=== PATIENT | female | born 2000 | race African-American/Black ===

== ENCOUNTER 2024-09-05 01:14 | Emergency (ER) | payer SELFPAY ==
[2024-09-05 01:21] VITALS: BP 127/73; PULSE 80; RESP 15; TEMP 36.9; O2SAT 100
[2024-09-05 02:07] LABS: Strep Group A RT-PCR NOT DETECTED (Negative)
[2024-09-05 02:18] LABS: Influenza A QL RT-PCR Positive (Negative); Influenza B QL RT-PCR Negative (Negative); RSV RNA, RT-PCR Negative (Negative); SARS-CoV-2 RNA PCR Negative (Negative)
--- NOTE | 2024-09-05 02:26 | ED.URI ---
HPI - URI/Sore Throat General Chief Complaint: Upper Respiratory Infection Stated Complaint: migraines, chills, weakness, flu like symptoms Time Seen by Provider: 09/05/24 02:20 Source: patient Mode of arrival: ambulatory Limitations: no limitations History of Present Illness HPI Narrative: This is a 24-year-old female that presents to the emergency department for cold symptoms. Ongoing over the last 5 days. Reports fevers, myalgias, headache, sore throat, congestion. She has been taking Theraflu and Mucinex. Related Data Allergies Allergy/AdvReac Type Severity Reaction Status Date / Time No Known Allergies Allergy Verified 09/05/24 01:16 Review of Systems Review of Systems: CONSTITUTIONAL: Reports fever ENT: Reports rhinorrhea, congestion, sore throat RESPIRATORY: Reports cough and dyspnea. NEUROLOGIC: Reports headache All systems reviewed & are unremarkable except as noted in HPI and below PMFSH Past Medical History Medical History (Updated 09/05/24 @ 02:31 by Tiffanie Paz PA-C) No active medical problems Exam Narrative: GENERAL: Well-appearing, well-nourished, and in no acute distress. HEAD: Normocephalic, atraumatic. EYES: PERRLA and EOMI. ENT: Nares clear, no rhinorrhea or epistaxis. Mucous membranes moist. Oropharynx without tonsillar hypertrophy exudate or other lesions. Bilateral TMs pearly gómez non-bulging NECK: Supple. No adenopathy or masses. CHEST: Clear to auscultation. No respiratory distress. No wheezes rales or rhonchi HEART: Regular rate and rhythm. No murmur heard. Normal peripheral pulses. ABDOMEN: Soft, nontender, nondistended, normal active bowel sounds. EXTREMITIES: Normal range of motion. No edema. Strength equal in bilateral upper lower extremities (5/5) SKIN: Warm, dry, no rash. NEURO: No focal deficits. Alert and oriented x3. Cranial nerves 2-12 grossly intact PSYCH: Normal mood and affect Course Course Emergency Course: patient updated on her workup and agrees with plan of care Vital Signs Vital signs: Vital Signs Temperature 98.5 F 09/05/24 01:21 Pulse Rate 80 09/05/24 01:21 Respiratory Rate 15 09/05/24 01:21 Blood Pressure 127/73 09/05/24 01:21 Pulse Oximetry 100 09/05/24 01:21 Temperature 98.5 F 09/05/24 01:21 Pulse Rate 80 09/05/24 01:21 Respiratory Rate 15 09/05/24 01:21 Blood Pressure 127/73 09/05/24 01:21 Pulse Oximetry 100 09/05/24 01:21 MDM - URI/Sore Throat MDM Narrative Medical decision making narrative: Patient presents to the emergency department for cold symptoms. She is afebrile and nontoxic appearing. Oxygen saturation is 100% on room air. Lungs are clear on exam. Patient is influenza A positive. Instructed on further symptomatic care of viral infection. She is to follow up with primary provider. She was given warnings to return to the ER Differential Diagnosis Differential diagnosis: Likely upper respiratory infection, sinusitis, viral infection, bronchitis, influenza and other (covid) Lab Data Attestation: I reviewed the patient's lab results. Labs: Lab Results 09/05/24 09/05/24 Range/Units 01:36 01:37 Influenza A (RT-PCR) Positive A (Negative) Influenza B (RT-PCR) Negative (Negative) RSV (RT-PCR) Negative (Negative) SARS-CoV-2 RNA (RT-PCR) Negative (Negative) Group A Strep (PCR) Not detected (Negative) Critical Care Time Critical Care Time Critical Care Time: No Discharge Plan Discharge Clinical Impression: Influenza A Patient Disposition: Home, Self-Care Condition: Improved Instructions: Influenza (ED) Additional Instructions: Return to the emergency department for worsening symptoms, or any other concerns Remain well-hydrated, get plenty of rest. Take Tylenol or Motrin [id number] for pain as needed. Flonase for nasal congestion. Zyrtec for runny nose. Lozenges or Chloraseptic spray for sore throat. Follow up with primary care doctor Patient Language: Vietnamese Follow-up/Referrals: UNKNOWN,DOCTOR [Primary Care Provider] -
[2024-09-05] MEDS: SODIUM CHLORIDE 0.9% IV 1,000 ML 999 ML IV CONT (02:53)
[2024-09-05] MEDS: ACETAMINOPHEN 500 MG TABLET 1000 MG PO (02:54)
[2024-09-05] MEDS: METOCLOPRAMIDE HCL INJ 10 MG/2 ML VIAL IV PUSH (02:55)
[2024-09-05] MEDS: diphenhydrAMINE HCl INJ 50 MG/ML VIAL 25 MG IV PUSH (02:55)
== END 2024-09-05 04:05 | disposition home or self-care (01) ==
LOC: ANHED 02:39
PROVIDERS: Student in an Organized Health Care Education/Training Program; Emergency Provider Physician Assistant
DX: J10.1 Influenza due to other identified influenza virus with other respiratory manifestations (principal); Z20.822 Contact with and (suspected) exposure to COVID-19
CPT/HCPCS: 87637; 87651; 96361; 96374; 96375; 99284; A9270; J1200; J2765; J7030